=== PATIENT | female | born 1975 | race Hispanic/Latino ===

== ENCOUNTER → 2024-06-29 | Day surgery (SDC) | payer OTHER ==
[~2024-06-29] MED LIST: BIOTIN1 MG PO; CRESTOR40 MG PO; HYDROCHLOROTHIA25 MG PO; LIDOCAINE HCL 2% LOCAL INJ 5 ML SDV VIAL INJ ONE; OMEGA 3 1,0001 EACH PO; PROPOFOL IV EMULSION 10 MG/ML 20 ML VIAL ONE; VITAMIN D3 COM1 EACH PO
[2024-06-29] MEDS: LACTATED RINGER'S 1,000 ML ONE (09:21)
[2024-06-29 11:40] VITALS: BP 127/71; PULSE 66; RESP 16; TEMP 97.7; O2SAT 98
== END | disposition home or self-care (01) ==
LOC: OR 08:32
PROVIDERS: ATTEND Internal Medicine Gastroenterology
DX: Z12.11 Encounter for screening for malignant neoplasm of colon (principal); D12.3 Benign neoplasm of transverse colon; D12.5 Benign neoplasm of sigmoid colon; K64.8 Other hemorrhoids; I10 Essential (primary) hypertension; E78.5 Hyperlipidemia, unspecified; Z01.810 Encounter for preprocedural cardiovascular examination; Z79.899 Other long term (current) drug therapy
CPT/HCPCS: 45380; 45385; 81025; 93005; J2003; J2704; J7121; 45378